=== PATIENT | born 2000 ===

== ENCOUNTER 2025-04-26 15:59 | Outpatient (REF) | payer SELFPAY ==
[2025-04-27 19:28] LABS: HBs Antibody, Quant 64.9 mIU/mL (See Note); Hepatitis B Surface Ab Positive (See Note)
[2025-04-27 20:08] LABS: Hepatitis C Ab w Rflx HCV PCR Negative (Negative)
[2025-04-27 20:14] LABS: HIV-1/2 Ag & Ab Screen Negative (Negative)
== END 2025-04-26 16:00 | disposition home or self-care (01) ==
LOC: LBO 15:59
DX: Z11.59 Encounter for screening for other viral diseases (principal); Z11.4 Encounter for screening for human immunodeficiency virus [HIV]
CPT/HCPCS: 36415; 86706; 86803; 87340; 87389